=== PATIENT | male | born 2000 ===

== ENCOUNTER 2022-04-21 22:27 | Emergency (ER) | payer OTHER ==
[2022-04-21] MEDS ORDERED: Cyclobenzaprine 10 MG Tab PO ONE (22:28)
[2022-04-21] MEDS ORDERED: Acetaminophen/HYDROcodone 325-10 MG Tab PO ONE ×2 (22:28→23:08)
[2022-04-21] MEDS ORDERED: predniSONE 20 MG Tab PO ONE (23:08)
[2022-04-21] MEDS ORDERED: Acetaminophen/HYDROcodone 325-10 MG Tab ONE (23:17)
[2022-04-21] MEDS ORDERED: Cyclobenzaprine 10 MG Tab ONE (23:17)
== END 2022-04-21 23:38 | disposition home or self-care (01) ==
LOC: DL.ED 22:27
DX: M54.42 Lumbago with sciatica, left side (principal)
CPT/HCPCS: 99282; 99283; A9270; J7512

== ENCOUNTER 2022-04-23 09:09 | Emergency (ER) | payer OTHER | END 2022-04-23 09:15 | disposition home or self-care (01) | LOC: DL.ED 09:09 | DX: Z53.21 Procedure and treatment not carried out due to patient leaving prior to being seen by health care provider (principal) ==